=== PATIENT | male | born 1965 | race Caucasian/White ===

== ENCOUNTER → 2019-01-11 | Outpatient (CLI) | payer BC ==
--- NOTE | 2019-01-11 08:58 | PCVCIMAG ---
APPROVED REPORT Study performed: 01/11/2019 07:58:32 EXAM: Comprehensive 2D, Doppler, and color-flow Echocardiogram Patient Location: Echo lab Status: routine BSA: 2.39 HR: 73 bpmBP: 122/84 mmHg Rhythm: NSR Other Information Study Quality: Adequate Indications Aortic aneurysm 2D Dimensions IVSd: 10.91 (7-11mm) LVDd: 56.13 mm PWd: 11.07 (7-11mm)Ascending Ao: 48.16 (22-36mm) LVDs: 43.28 (25-40mm) Left Atrium: 33.38 (27-40mm) Aortic Root: 42.31 mm LV Single Plane 4CH: 55.95 % LV Single Plane 2CH: 57.24 % Biplane EF: 56.8 % Volumes Left Atrial Volume (Systole) Single Plane 4CH: 85.72 mLSingle Plane 2CH: 86.73 mL LA ESV Index: 38.00 mL/m2 Aortic Valve AoV Peak Nicolas.: 1.26 m/s AO Peak Gr.: 6.33 mmHgLVOT Max P.33 mmHg LVOT Max V: 1.04 m/s AI Vmax: 4.58 m/s AI [place]: 2.62 m/s2 AI PHT: 506.70 ms Mitral Valve E/A Ratio: 0.9 MV Decel. Time: 238.94 ms MV E Max Nicolas.: 0.43 m/s MV A Nicolas.: 0.49 m/s IVRT: 117.65 ms Pulmonary Valve PV Peak Nicolas.: 0.89 m/sPV Peak Gr.: 3.14 mmHg Pulmonary Vein P Vein S: 0.36 m/sP Vein A: 0.29 m/s P Vein D: 0.59 m/sP Vein A Dur.: 131.5 msec P Vein S/D Ratio: 0.61 Tricuspid Valve TR Peak Nicolas.: 2.45 m/s TR Peak Gr.: 24.01 mmHg TV Vmax: 0.54 m/s Left Ventricle The left ventricle is normal size. There is normal LV segmental wall motion. There is normal left ventricular wall thickness. Left ventricular systolic function is normal. The left ventricular ejection fraction is within the normal range. LVEF is 55%. Moderate diastolic dysfunction is present (pseudonormal filling). Right Ventricle The right ventricle is normal size. The right ventricular systolic function is normal. [place] The left atrium size is normal. The right atrium size is normal. Aortic Valve The aortic valve is normal in structure. Mild aortic regurgitation. There is no aortic valvular stenosis. Mitral Valve The mitral valve is normal in structure. Mild mitral regurgitation. No evidence of mitral valve stenosis. Tricuspid Valve The tricuspid valve is normal in structure. Mild tricuspid regurgitation with PAP of 30 mmHg. Pulmonic Valve The pulmonary valve is normal in structure. There is mild pulmonic valvular regurgitation. Great Vessels Aortic root is dilated to 4.2 cm. The sinus of valsalva is dilated to 4.6 cm. The ascending aorta is dilated (4.8 cm). IVC is normal in size and collapses >50% with inspiration. Pericardium There is no pericardial effusion. There is no pleural effusion. <Conclusion> Left ventricular systolic function is normal. There is normal LV segmental wall motion. LVEF is 55%. Moderate diastolic dysfunction The aortic valve is normal in structure. Mild aortic regurgitation, no stenosis. The mitral valve is normal in structure. Mild mitral regurgitation. Mild tricuspid regurgitation with pulmonary artery pressure of 30 mmHg. The ascending aorta is dilated (4.8 cm). There is no pericardial effusion.
== END | disposition home or self-care (01) ==
LOC: PCVCIMAG 08:00
PROVIDERS: ATTEND Internal Medicine
DX: I08.3 Combined rheumatic disorders of mitral, aortic and tricuspid valves (principal)
CPT/HCPCS: 93306